=== PATIENT | female | born 1975 | race Caucasian/White ===

== ENCOUNTER 2023-07-11 11:38 | Observation (INO) | payer OTHER ==
[2023-07-11 13:41] LABS: BASO % 0.8 % (0-2.0); EOS % 0.8 % (0-4.5); HEMATOCRIT 42.3 % (32.4-45.2); HEMOGLOBIN 14.3 GM/dL (10.7-15.3); LYMPH % 34.6 % (8-40); MCH 32.4 pg (25.7-33.7); MCHC 33.9 g/dl (32.0-36.0); MEAN CELL VOLUME 95.5 fl (80-96); MEAN PLT VOLUME 9.8 fl (7.5-11.1); MONO % 6.8 % (3.8-10.2); PLATELET COUNT 257 10^3/uL (134-434); RBC 4.43 M/mm3 (3.60-5.2); RDW 13.4 % (11.6-15.6); WHITE BLOOD COUNT 5.9 K/mm3 (4.0-10.0)
[2023-07-11 13:48] LABS: HCG,QUALITATIVE URINE Negative
[2023-07-11 13:50] LABS: INR 1.11 (0.83-1.09); PROTHROMBIN TIME (PATIENT) 12.9 SEC (9.7-13.0)
[2023-07-11 13:53] LABS: ACTIVATED PTT 33.4 SECONDS (25.2-36.5)
[2023-07-11 14:05] LABS: BLOOD UREA NITROGEN 11.5 mg/dL (7-18); CALCIUM 9.9 mg/dL (8.5-10.1)
[2023-07-11 14:09] LABS: BILIRUBIN,TOTAL 0.5 mg/dL (0.2-1); CREATININE 0.6 mg/dL (0.55-1.3)
[2023-07-11 14:10] LABS: TOT PROT 8.3 g/dl (6.4-8.2)
[2023-07-11 14:56] LABS: URINE APPEARANCE CLOUDY; URINE BILIRUBIN NEGATIVE (NEGATIVE); URINE COLOR DK YELLOW; URINE GLUCOSE (UA) NEGATIVE (NEGATIVE); URINE KETONE TRACE (NEGATIVE)
[2023-07-11 14:57] LABS: URINE LEUK ESTERASE TRACE (NEGATIVE); URINE NITRITE NEGATIVE (NEGATIVE); URINE PROTEIN TRACE (NEGATIVE); URINE RBC 14.5 /uL (0-23.9); URINE WBC 353.7 /uL (0-25.8)
[2023-07-11 14:58] LABS: EPI CELLS 115.1 /uL (0-25.1); HYALINE CASTS 15.46 /uL (0-3.1); URINE BACTERIA 12173.3 /uL (0-1359)
[2023-07-11 22:00] VITALS: BMI 32.8
[2023-07-12] MEDS: ACETAMINOPHEN 1000 MG/100 ML BAG IVPB ONE (10:20)
[2023-07-13 09:08] VITALS: RESP 18
[2023-07-13] MEDS: ACETAMINOPHEN 325 MG TABLET (FP) PO PRN (21:08)
[2023-07-13] MEDS: ONDANSETRON 4 MG/2 ML VIAL IVPUSH ONE (21:09)
[2023-07-14 05:34] VITALS: BP 150/88; PULSE 101; TEMP 98.8
[2023-07-14] MEDS: ONDANSETRON 4 MG/2 ML VIAL IVPUSH PRN (07:15)
== END 2023-07-14 14:41 | disposition home or self-care (01) ==
LOC: JER 11:38 → JERBED 17:51 → J6S 19:36
PROVIDERS: ADMIT Internal Medicine; ATTEND Internal Medicine
PROC: 3E033NZ Introduction of Analgesics, Hypnotics, Sedatives into Peripheral Vein, Percutaneous Approach (ICD-10-PCS; principal; 2023-07-11)
PROC: 3E033NZ Introduction of Analgesics, Hypnotics, Sedatives into Peripheral Vein, Percutaneous Approach (ICD-10-PCS; 2023-07-11)
PROC: 3E033GC Introduction of Other Therapeutic Substance into Peripheral Vein, Percutaneous Approach (ICD-10-PCS; 2023-07-11)
DX: R19.00 Intra-abdominal and pelvic swelling, mass and lump, unspecified site (principal); D25.9 Leiomyoma of uterus, unspecified; R51.9 Headache, unspecified; G89.29 Other chronic pain
CPT/HCPCS: 36415; 72196-TC; 74177-TC; 76830-TC; 80053; 81003; 83690; 84703; 85025; 85610; 85730; 86304; 86850; 86900; 86901; 87086; 96374; 96375; 96376; 99285-25; G0378; J0131; Q9967